=== PATIENT | female | born 1950 | race Caucasian/White ===

== ENCOUNTER 2017-05-14 14:30 | Outpatient (CLI) | payer BC | END 2017-05-14 14:31 | disposition home or self-care (01) | LOC: BICRAD 14:30 | PROVIDERS: ATTEND Family Medicine | DX: R42 Dizziness and giddiness (principal); R00.2 Palpitations; R91.8 Other nonspecific abnormal finding of lung field | CPT/HCPCS: 71046 ==

== ENCOUNTER 2017-05-21 08:02 | Outpatient (CLI) | payer MEDICARE, BC ==
[2017-05-21] MEDS ORDERED: Iopamidol 370 76% 100 ML VIAL ONE (13:48)
== END 2017-05-21 08:03 | disposition home or self-care (01) ==
LOC: BICCT 08:02
PROVIDERS: ATTEND Family Medicine
DX: R93.8 Abnormal findings on diagnostic imaging of other specified body structures (principal); R59.0 Localized enlarged lymph nodes
CPT/HCPCS: 71260

== ENCOUNTER 2017-06-11 08:02 | Day surgery (SDC) | payer BC, MEDICARE ==
[2017-06-10 16:53] VITALS: BMI 17.5
[2017-06-11] MEDS ORDERED: Lidocaine 2% w/Epinephrine 1:200K 20 ML VIAL ONE (08:38)
[2017-06-11] MEDS ORDERED: Lidocaine 1% w/Epinephrine 1:200K 30 ML VIAL ONE ×2 (08:38→08:39)
[2017-06-11] MEDS ORDERED: Midazolam HCl 2 mg/ml Syrup 5 ml UD Cup ONE (09:00)
[2017-06-11] MEDS ORDERED: Levofloxacin 500 mg/D5W 100 ml Premix Bag ONE (09:00)
[2017-06-11] MEDS ORDERED: Midazolam HCl 2 mg/2 ml Vial ONE (09:01)
[2017-06-11 09:06] LABS: #Basophils 0.1 thou/uL (0.0-0.2); #Eosinphils 0.1 thou/uL (0.0-0.7); #Lymphocytes 1.7 thou/uL (1.20-3.40); #Monocytes 0.6 thou/uL (0.11-0.59); #Neutrophils 5.3 thou/uL (1.40-6.50); %Eosinophils 1.7 % (0.0-10.0); %Lymphocytes 21.2 % (21.0-51.0); %Monocytes 7.3 % (0.0-10.0); %Neutrophils 68.8 % (42.0-75.0); Hemoglobin 12.3 g/dL (12.0-16.0); Mean Corpuscular HGB CONC 31.6 g/dL (32.0-36.0); Mean Corpuscular Hemoglobin 29.2 pg (27.0-31.0); Mean Corpuscular Volume 92.4 fl (81.0-99.0); Mean Platelet Volume 8.3 fL (7.4-10.4); Platelet Count 316 thou/uL (130-400); RBC Distribution Width 13.3 % (11.5-14.5); Red Blood Cell (RBC) Count 4.21 mill/uL (4.20-5.40); White Blood Cell (WBC) Count 7.8 thou/uL (4.8-10.8)
[2017-06-11] MEDS ORDERED: Fentanyl 250 MCG/5 ML VIAL ONE (09:14)
[2017-06-11 09:24] LABS: Anion Gap 12 mmol/L (10-20); BUN (Urea Nitrogen) 13 mg/dL (9.8-20.1); Calc. Creatinine Clearance 63 mL/min (70-130); Calcium 9.6 mg/dL (7.8-10.44); Carbon Dioxide 26 mmol/L (23-31); Chloride 103 mmol/L (98-107); Estimated GFR-MDRD 76; Glucose 98 mg/dL (80-115); Potassium 3.8 mmol/L (3.5-5.1); Sodium 137 mmol/L (136-145)
[2017-06-11] MEDS ORDERED: PROPOFOL 200 MG/20 ML VIAL ONE (15:32)
[2017-06-11] MEDS ORDERED: Ondansetron HCl/PF 4 MG/2 ML Vial ONE (15:32)
[2017-06-11] MEDS ORDERED: Lidocaine 1% PF 5 ML VIAL ONE (15:32)
[2017-06-11] MEDS ORDERED: PHENYLEPHRINE-NS 100 MCG/ML 10 ML SYRINGE ONE (15:32)
[2017-06-11] MEDS ORDERED: Glycopyrrolate 0.2 MG/ML 5 ML SYRINGE ONE (15:32)
--- NOTE | 2017-06-15 13:49 | OP ---
DATE OF PROCEDURE: 06/11/2017 PREOPERATIVE DIAGNOSIS: Metastatic lung cancer. PROCEDURE: Right cervical scalene node biopsy. SURGEON: Solo Hebert M.D. ANESTHESIA: General. ESTIMATED BLOOD LOSS: Minimal. PROCEDURE IN DETAIL: After prepping and draping, anesthesia had been obtained, incision was made ove r the right scalene area. Incision was carried down through the platysma, exposing the hard scalene node. A section of this was excisionally biopsied and hemostasis was obtained. A 1% lidocaine with epinephrine was used to infiltrate the skin and subcutaneous tissues and the wound was then closed in layers. Frozen section returned non-small cell carcinoma. The patient tolerated the procedure well .
== END 2017-06-11 12:20 | disposition home or self-care (01) ==
LOC: SDC 08:02
PROVIDERS: ATTEND Thoracic Surgery (Cardiothoracic Vascular Surgery)
PROC: 07B10ZX Excision of Right Neck Lymphatic, Open Approach, Diagnostic (ICD-10-PCS; principal; 2017-06-11)
DX: C77.0 Secondary and unspecified malignant neoplasm of lymph nodes of head, face and neck (principal); C34.11 Malignant neoplasm of upper lobe, right bronchus or lung; F17.210 Nicotine dependence, cigarettes, uncomplicated; Z88.0 Allergy status to penicillin; Z88.5 Allergy status to narcotic agent
CPT/HCPCS: 80048; 85025; 88307; 88313; 88331; 88334; 88341; 88342; 93005; 93010; J1956; J2001; J2250; J2405; J2704; J3010

== ENCOUNTER 2017-06-16 17:34 | Emergency (ER) | payer BC, MEDICARE ==
[2017-06-16 18:03] LABS: #Basophils 0.1 thou/uL (0.0-0.2); #Eosinphils 0.2 thou/uL (0.0-0.7); #Lymphocytes 2.7 thou/uL (1.20-3.40); #Monocytes 0.8 thou/uL (0.11-0.59); #Neutrophils 8.1 thou/uL (1.40-6.50); %Basophils 0.7 % (0.0-1.0); %Eosinophils 1.7 % (0.0-10.0); %Lymphocytes 22.7 % (21.0-51.0); %Monocytes 6.9 % (0.0-10.0); %Neutrophils 68.1 % (42.0-75.0); Hemoglobin 13.7 g/dL (12.0-16.0); Mean Corpuscular HGB CONC 31.9 g/dL (32.0-36.0); Mean Corpuscular Hemoglobin 28.7 pg (27.0-31.0); Mean Corpuscular Volume 90.1 fl (81.0-99.0); Mean Platelet Volume 8.1 fL (7.4-10.4); Platelet Count 410 thou/uL (130-400); RBC Distribution Width 13.5 % (11.5-14.5); Red Blood Cell (RBC) Count 4.78 mill/uL (4.20-5.40); White Blood Cell (WBC) Count 11.9 thou/uL (4.8-10.8)
[2017-06-16 18:36] LABS: CKMB 0.7 ng/mL (0-6.6); Troponin I Less than 0.010 ng/mL (< 0.028)
--- NOTE | 2017-06-16 19:10 | RAD ---
FRONTAL VIEW CHEST: 06/16/17 No prior comparison. INDICATION: Chest pain. FINDINGS: There is a patchy right perihilar opacity. The lungs are hyperinflated. No effusion or pneumothorax. Cardiac silhouette is normal in size. IMPRESSION: Patchy right perihilar opacity could relate to perihilar pneumonia versus asymmetric edema. Recommend continued imaging followup to confirm resolution, as an underlying obstructive hilar lesion is not e xcluded. POS: [facility]
[2017-06-16] MEDS ORDERED: Lorazepam 1 MG TAB ONE (19:30)
[2017-06-16 20:55] LABS: Anion Gap 17 mmol/L (10-20); BUN (Urea Nitrogen) 27 mg/dL (9.8-20.1); Calc. Creatinine Clearance 0 mL/min (70-130); Calcium 10.6 mg/dL (7.8-10.44); Carbon Dioxide 18 mmol/L (23-31); Chloride 105 mmol/L (98-107); Estimated GFR-MDRD 76; Glucose 124 mg/dL (80-115); Potassium 4.6 mmol/L (3.5-5.1); Sodium 135 mmol/L (136-145)
[2017-06-16] MEDS ORDERED: Diphenoxylate HCl/Atropine Tablet ONE (21:20)
== END 2017-06-16 22:16 | disposition home or self-care (01) ==
LOC: ERS 17:34
DX: C34.91 Malignant neoplasm of unspecified part of right bronchus or lung (principal); E86.0 Dehydration; F17.210 Nicotine dependence, cigarettes, uncomplicated; Z79.891 Long term (current) use of opiate analgesic
CPT/HCPCS: 71045; 80048; 82553; 83735; 84484; 85025; 93005; 96360; 96361

== ENCOUNTER 2017-06-24 09:05 | Outpatient (CLI) | payer BC, MEDICARE ==
[~2017-06-24 09:05] MED LIST: Gadobenate Dimeglumine 529 MG/1 ML (20ML VIAL) ONE
--- NOTE | 2017-06-24 15:16 | MRI ---
BRAIN MRI WITH AND WITHOUT CONTRAST: Date: 06/24/17 HISTORY: Headache. Lung cancer patient. Staging exam. COMPARISON: None. TECHNIQUE: Brain MRI is performed with and without intravenous Gadolinium administration. Multisequential, multi planar imaging is performed. FINDINGS: No hemorrhage on the axial gradient echo sequence. Calvarium has a normal T1 marrow signal intensity. Midline brain parenchymal structures are unremarkable. No parenchymal mass, mass effect, or midline shift. Brain volume is age-appropriate. Cortical gregory-white matter differentiation is preserved. Vent ricles and sulci are patent and symmetric. Central arterial flow-voids are maintained. Absent restric lacho diffusion. Incidental choroidal fissure cyst in the right temporal region is noted. Adequate aera tion of the sinuses and mastoid air cells. No significant T2 or FLAIR white matter hyperintensities. No pathologic enhancement of the brain parenchyma. IMPRESSION: No pathologic enhancement of the brain parenchyma. No MR evidence of brain parenchymal metastasis. POS: [facility]
== END 2017-06-24 09:06 | disposition home or self-care (01) ==
LOC: SCSMRI 09:05
PROVIDERS: ATTEND Internal Medicine Medical Oncology
DX: C34.31 Malignant neoplasm of lower lobe, right bronchus or lung (principal); R51 Headache
CPT/HCPCS: 70553; A9579

== ENCOUNTER 2017-06-24 10:29 | Outpatient (CLI) | payer MEDICARE, BC ==
--- NOTE | 2017-06-24 14:57 | PET ---
NUCLEAR MEDICINE FDG PET CT: (Positron Emission Tomography) DATE: 06/24/17 HISTORY: 67-year-old female with Stage IV metastatic adenocarcinoma identified from neck biopsy. PET scan orde red to evaluate extent of metastatic disease and to identify primary neoplasm. COMPARISON: None. TECHNIQUE: IV injection F-18 Fluorodeoxyglucose (FDG) dose: 9.1 mCi PET and attenuation-correction CT performed from skull base to proximal thighs. FINDINGS: SUV (standard uptake value) numbers given are maximum SUV's: These are QCLR values. At the T2-3 level, there is an enlarged right paraesophageal upper mediastinal lymph node, SUV 11.4. Right medial supraclavicular lymph node abutting the lateral aspect of right lobe of the thyroid glan d with SUV of 9.8. More inferiorly in the mediastinum, a midline pretracheal, precarinal lymph node SUV 9.2. This is contiguous with left precarinal lymph node with SUV of 9.5. These are contiguous with subcari nal lymph nodes with SUV of 9.1. Right hilar activity with SUV of 7.3. This is contiguous with a small right parahilar lower lobe soft tissue density lesion with SUV of 5.6. Left paraesophageal inferior mediastinal lymph node abutting the anterior aspect of the descending th oracic aorta and abutting the posterior aspect of the left atrium of the heart, measuring approximate ly 3.5 x 2 cm, with SUV of 8.7. A 4 x 4 cm mass at the region of the gastroesophageal junction with peripheral rim of FDG avidity. OCONNELL V 9.0. Low attenuation lesion in right lobe of the liver without FDG avidity, probably a cyst. No abnormal F DG avidity within the abdomen or pelvis. IMPRESSION: 1. Multiple foci of FDG-avid tumor activity at midline and off midline, including multiple metastati c lymph nodes. 2. The best candidate for the primary tumor may be a 4 x 4 cm mass at the esophagogastric junction. 3. The second best candidate for the primary tumor would be right infrahilar lower lobe pulmonary. 4. Several malignant mediastinal lymph nodes, right hilar lymph node, and right supraclavicular lymp h node. The mediastinal lymph nodes include paraesophageal lymph nodes. DESTINEE Sexton POS: [facility]
== END 2017-06-24 10:30 | disposition home or self-care (01) ==
LOC: PET 10:29
PROVIDERS: ATTEND Internal Medicine Medical Oncology
DX: C34.90 Malignant neoplasm of unspecified part of unspecified bronchus or lung (principal); C77.8 Secondary and unspecified malignant neoplasm of lymph nodes of multiple regions
CPT/HCPCS: 78815; A9552

== ENCOUNTER 2017-07-23 09:43 | Outpatient (CLI) | payer BC, MEDICARE ==
--- NOTE | 2017-07-23 14:37 | NM ---
WHOLE BODY BONE SCAN: HISTORY: Malignant neoplasm of lower lobes, right bronchus. RADIOPHARMACEUTICAL: 33 mCi Technetium 99m-MDP injected intravenously. FINDINGS: There are foci of mild increased uptake in the cervical spine consistent with degenerative changes. No other abnormal areas of tracer localization are seen in the skeleton to suggest metastatic disease . Tracer excretion through the kidneys is within normal limits. IMPRESSION: No scintigraphic evidence of osseous metastatic disease. POS: [facility]
== END 2017-07-23 09:44 | disposition home or self-care (01) ==
LOC: NM 09:43
PROVIDERS: ATTEND Internal Medicine Medical Oncology
DX: C34.90 Malignant neoplasm of unspecified part of unspecified bronchus or lung (principal)
CPT/HCPCS: 78306; A9503

== ENCOUNTER 2017-08-17 12:50 | Observation (INO) | payer BC, MEDICARE ==
[~2017-08-17 12:50] MED LIST changes: -Gadobenate Dimeglumine 529 MG/1 ML (20ML VIAL) ONE; +ISOVUE-370 76%-LOCM 1 ML ONE
[2017-08-17 13:41] LABS: #Basophils 0.1 thou/uL (0.0-0.2); #Eosinphils 0.3 thou/uL (0.0-0.7); #Lymphocytes 2.1 thou/uL (1.20-3.40); #Monocytes 0.8 thou/uL (0.11-0.59); #Neutrophils 6.9 thou/uL (1.40-6.50); %Basophils 1.2 % (0.0-1.0); %Eosinophils 2.8 % (0.0-10.0); %Lymphocytes 20.9 % (21.0-51.0); %Monocytes 7.4 % (0.0-10.0); %Neutrophils 67.8 % (42.0-75.0); Hemoglobin 11.2 g/dL (12.0-16.0); Mean Corpuscular HGB CONC 31.4 g/dL (32.0-36.0); Mean Corpuscular Hemoglobin 27.7 pg (27.0-31.0); Mean Corpuscular Volume 88.1 fl (81.0-99.0); Mean Platelet Volume 10.1 fL (7.4-10.4); Platelet Count 242 thou/uL (130-400); RBC Distribution Width 13.5 % (11.5-14.5); Red Blood Cell (RBC) Count 4.03 mill/uL (4.20-5.40); White Blood Cell (WBC) Count 10.1 thou/uL (4.8-10.8)
[2017-08-17 13:44] LABS: INR-International Normal Ratio 1.3; Prothrombin Time 16.4 SEC (12.0-14.7)
[2017-08-17 13:45] LABS: PTT 39.5 SEC (22.9-36.1)
[2017-08-17 13:58] LABS: ALT (SGPT) 15 U/L (8-55); AST (SGOT) 17 U/L (5-34); Albumin 3.8 g/dL (3.4-4.8); Alkaline Phosphatase 98 U/L (40-150); Anion Gap 16 mmol/L (10-20); BUN (Urea Nitrogen) 11 mg/dL (9.8-20.1); Bilirubin, Total 0.4 mg/dL (0.2-1.2); Calc. Creatinine Clearance 0 mL/min (70-130); Calcium 9.6 mg/dL (7.8-10.44); Carbon Dioxide 24 mmol/L (23-31); Chloride 101 mmol/L (98-107); Estimated GFR-MDRD 90; Glucose 94 mg/dL (80-115); Potassium 4.3 mmol/L (3.5-5.1); Protein, Total 7.8 g/dL (6.0-8.3); Sodium 137 mmol/L (136-145)
--- NOTE | 2017-08-17 14:15 | CT ---
CT CHEST WITH CONTRAST: Date: 08/17/17 HISTORY: Dyspnea. COMPARISON: None. FINDINGS: There is a spiculated mass superior segment right lower lobe and anterior segment right lower lobe, w ith retraction of the major fissure, as well as extensive thickening. The mass measures approximately 5.0 x 3.0 x 5.1 cm, although there is extension along the hilum. There are abnormal centrally necrot ic lymph nodes throughout the mediastinal. Right paratracheal lymph node measures up to 2.3 cm in siz e. Extensive subcarinal adenopathy, as well as paraesophageal adenopathy is present. Large centrally necrotic right paraesophageal lymph node measures up to 4.0 cm in transverse dimension. There is abnormal mediastinal invasion, as well as some involvement of the left inferior pulmonary ve in. Hepatic cyst is present. No acute osseous abnormality. No suspicious lytic or blastic lesions. No displaced rib fracture. IMPRESSION: 1. Large spiculated malignant process in the right lower lobe with extensive mediastinal adenopathy. 2. Extensive central lobular and paraseptal emphysema. 3. Likely malignant small right-sided layering pleural effusion. POS: [facility]
--- NOTE | 2017-08-17 15:08 | CT ---
NECK CT WITH CONTRAST: Date: 08-17-17 History: Dyspnea. Known metastatic disease. Technique: Serial axial CT imaging at 5 mm intervals from skull base through lung apices with IV cont rast. Coronal and sagittal reformatted imaging obtained. FINDINGS: The retroantral and parapharyngeal fat appears clear bilaterally. Imaged paranasal sinuses/mastoid air cells are well aerated. Bilateral lung apices demonstrate emphysematous change. There is a soft tissue mass in the right trac heoesophageal groove abutting the posterior inferior aspect of the right lobe of the thyroid gland me asuring 3.1 cm in AP dimension. There is a lobulated soft tissue mass in the supraclavicular region just posterior and superior to th e head of the clavicle on the right. This mass measures 3.8 x 3.6 cm and abuts the internal jugular v ein on the right with marked internal jugular vein narrowing. Parotid and submandibular glands appear grossly unremarkable. Tonsillar pillars, hyoid bone, epiglott is and pre-epiglottic fat, thyroid cartilage and cricoid cartilage appear unremarkable. Nonspecific l ow density nodules are identified within the thyroid gland bilaterally, including a nodular on the ri ght measuring up to 1.3 cm. There is degenerative change at the atlantoaxial interspace. There is prominent multilevel facet and uncal vertebral osteophyte formation throughout the cervical spine. There is also anterolisthesis at C4-5 measuring approximately 5 mm. There is disc space narrowing, degenerative endplate change, and a nterior osteophyte formation at C4-5, C5-6, and C6-7. No worrisome lytic or blastic bone lesion. IMPRESSION: There are mass lesions identified in the medial right subclavicular region and the right tracheoesoph ageal groove, evidence of metastatic disease. Findings were better assessed on recent PET CT performe d 06-24-17. POS: [facility]
[2017-08-17] MEDS ORDERED: Zolpidem Tartrate 5 MG TAB PO PRN (17:25)
[2017-08-17] MEDS ORDERED: Ondansetron ODT 4 MG TAB PO PRN (17:25)
[2017-08-17] MEDS ORDERED: Acetaminophen 325 MG TAB PO PRN (17:25)
[2017-08-17 18:04] VITALS: BMI 16.9
[2017-08-17] MEDS ORDERED: ALPRAZolam 0.25 MG TAB PO PRN (18:45)
[2017-08-17] MEDS: HYDROcodone/Acetaminophen 10/325 mg Tablet PO PRN (19:28)
[2017-08-17] MEDS: Mirtazapine 15 MG TAB PO SCH (20:14)
[2017-08-17] MEDS ORDERED: Mirtazapine 15 MG TAB PO SCH (21:00)
[2017-08-18] MEDS: HYDROcodone/Acetaminophen 10/325 mg Tablet PO PRN ×2 (05:06→20:23)
--- NOTE | 2017-08-18 07:41 | HP ---
CHIEF COMPLAINT: Hemoptysis. HISTORY OF PRESENT ILLNESS: The patient is a 67-year-old female who has a history of fairly recently diagnosed lung cancer. The patient is on Keytruda, but declined more aggressive chemotherapy. She is followed by Dr. Gaston. The patient presented today with some hemoptysis. She reports that for the last 3 weeks or so she has been having some difficulties with feeling like she has chest congest ion in the mornings. She subsequently coughs and generates some thin scant hemoptysis. That continu es throughout the day somewhat. She is also having some difficulty with swallowing with some bites o f food hanging in her throat and then ultimately coming back up. She does have some persistent cough and has had no fevers or chills. She does not have any significant sputum along with the mild hemop tysis. PAST MEDICAL HISTORY: Only notable for the lung cancer. She had a PET scan performed in June which revealed multiple foci including multiple metastatic lymph nodes. She had a 4 x 4 cm mass in the es ophagogastric junction and other significant one in the right infrahilar lower lobe, several malignan t mediastinal lymph nodes in the right hilar lymph node, right supraclavicular node, and mediastinal lymph nodes including the paraesophageal lymph node. Other than that, the patient has had no signifi cant chronic conditions. PAST SURGICAL HISTORY: Right supraclavicular lymph node biopsy. FAMILY HISTORY: Father of an MVA at the age of 47. Her mother at 93. She has 1 brother w ho of cancer who was a heavy drinker and smoker. She had another brother who of hepatitis. Her sister is alive and well. SOCIAL HISTORY: The patient has a history of smoking up to 2 packs per day. She has been smoking si nce she was 16 years old. She has no alcohol consumption but states she did drink when she was young er. She denies any history of drugs. She is a and her of cancer. ALLERGIES: PENICILLIN. CURRENT MEDICATIONS: Include Keytruda, Anoro Ellipta 1 puff q. day, Hemp Oil 1 drop q.24 hours, Norc o 10/325 one p.o. q.4 hours p.r.n., and Remeron 7.5 mg at bedtime. ALLERGIES: PENICILLIN. PHYSICAL EXAMINATION: VITAL SIGNS: Temperature 98.5, pulse 101, respirations 18, O2 sat 96% on room air, BP 153/85. GENERAL APPEARANCE: Age appropriate female. She is in no acute distress. She is awake, alert, orie nted, pleasant and cooperative. HEENT: PERRL. No OP lesions. NECK: Supple and symmetric. She does have some lymphadenopathy, especially in the right supraclavic ular area is palpable. CARDIOVASCULAR: Regular rate and rhythm with no murmurs. LUNGS: Clear to auscultation bilaterally. ABDOMEN: Soft, nontender, nondistended. Positive bowel sounds. No masses and no organomegaly. EXTREMITIES: Warm and dry. LABORATORY DATA: White count 10.1, hemoglobin 11.2, platelets 242. PT 16.3, INR 1.3, PTT 39.5. Maryann mistries are normal. A CT of the chest from today reveals a large spiculated malignant process in th e right lower lobe with extensive mediastinal lymphadenopathy, also extensive centrilobular and polo eptal emphysema and malignant small right-sided layering pleural effusion. A CT of the soft tissues of the neck, lesions identified at the medial right subclavicular region and the right tracheoesophag eal groove that are apparent metastatic lesions. IMPRESSION AND PLAN: 1. Hemoptysis with dysphagia. The patient has a paraesophageal tumor which is likely causing some i mpingement on the esophagus and possibly the trachea as well. I discussed with Dr. Gaston. We aramis l obtain a barium swallow to evaluate the esophagus to see if there is truly an impact on this area. In the meantime, we will give her some Solu-Medrol for symptom control and modify her diet. 2. Metastatic lung cancer stage IV. The patient is on Keytruda, but no other aggressive chemotherap y. 3. Insomnia. We will resume the patient's Remeron and give her p.r.n. Ambien. DISPOSITION: The patient is very clear that she would like to be a DNR and DNI. She names her Maggie hurd as her surrogate decision maker and her PCP is Jose Jasmine.
--- NOTE | 2017-08-18 09:56 | PDOC.PN ---
- Subjective Encounter Start Date: 08/18/17 Encounter Start Time: 09:55 FEELS OK THIS MORNING. SHE DID NOT SLEEP WELL, BUT THAT IS COMMON FOR HER. - Objective Resuscitation Status: Resuscitation Status DNR:Do Not Resuscitate Vital Signs & Weight: Vital Signs (12 hours) Temp Pulse Resp BP BP Pulse Ox 08/18/17 08:00 98.2 F 65 20 08/18/17 07:31 98.2 F 65 20 112/70 92 L 08/18/17 07:05 98.2 F 65 20 112/70 92 L 08/18/17 06:38 96 08/18/17 06:37 67 14 96 08/18/17 03:58 98.8 F 74 16 107/71 96 08/17/17 23:55 98.0 F 71 16 116/69 94 L Weight Weight 111 lb 6.4 oz I&O: 08/17/17 08/18/17 08/19/17 06:59 06:59 06:59 Intake Total 950 Balance 950 Result Diagrams: 08/17/17 13:29 08/17/17 13:29 Phys Exam - Physical Examination Constitutional: NAD HEENT: PERRLA Respiratory: no wheezing, no rales, no rhonchi SLIGHTLY DIMINISHED BREATH SOUNDS THROUGHOUT Cardiovascular: RRR, no significant murmur Gastrointestinal: soft, non-tender, no distention, positive bowel sounds Musculoskeletal: no edema Psychiatric: normal affect Dx/Plan (1) Hemoptysis Code(s): R04.2 - HEMOPTYSIS Status: Acute Plan: HAS ESOPHAGOTRACHEAL TUMOR ON CT OF NECK. D/W DR. PINTO. INITIALLY ORDERED STEROIDS, BUT HE SUBSEQUENTLY HELD THEM. (2) Lung cancer Code(s): C34.90 - MALIGNANT NEOPLASM OF UNSP PART OF UNSP BRONCHUS OR LUNG Status: Acute Plan: PATIENT IS ON KEYTRUDA, BUT DOES NOT WANT STANDARD CHEMO. HAS SEVERAL LESIONS AND MULTIPLE NODES INVOLVED. DR. PINTO CONSULTED. (3) Dysphagia Code(s): R13.10 - DYSPHAGIA, UNSPECIFIED Status: Acute Plan: DISCUSSED WITH ST. WILL GET A MODIFIED BA SWALLOW AND BA SWALLOW. TWO POTENTIAL LESIONS. ONE AT THE ESOPHAGOTRACHEAL JUNCTION AND ANOTHER AT THE ESOPHAGOGASTRIC JUNCTION. MODIFIED DIET. (4) Insomnia Code(s): G47.00 - INSOMNIA, UNSPECIFIED Status: Acute Plan: CHRONIC. HAS HER REMERON ORDERED WELL ARMAANIEN. - Plan * ABOVE.
--- NOTE | 2017-08-18 11:00 | RAD ---
MODIFIED BARIUM SWALLOW PERFORMED WITH SPEECH THERAPIST: HISTORY: Feeding difficulty, dysphagia. Lung cancer with paraesophageal mets. FINDINGS: The patient was given thin barium and barium coated crackers for the study. She showed some spillage with the barium coated crackers into the vallecula region. There is no aspiration or penetration. IMPRESSION: Minimal spillage into the vallecular region. No signs of aspiration or penetration. POS: [facility]
--- NOTE | 2017-08-18 11:44 | RAD ---
BARIUM SWALLOW: History: Dysphasia. History of a right lung mass and pathologic adenopathy with necrotic adenopathy i n the paraesophageal location. FINDINGS: The patient did ingest the barium and crystals without difficulty. I do not see any definite mucosal abnormalities. At approximately mid-esophagus level there is what appears to be a more circumferentia l narrowing of a short segment of the midesophagus. Distal to this level, the esophagus is displaced to the left and this area appears to be more related to an extrinsic impression. Because of the narro wing at the midesophagus, the more distal esophagus never fully filled. I do not see any definite muc osal findings. IMPRESSION: Fairly short segment of what appears to be circumferential narrowing of the midesophagus. This is ove r approximately two vertebral body levels. There is pathologic appearing adenopathy in this region. I cannot exclude that there has been esophageal wall invasion in this specific area. Distal to this ar ea the esophagus is displaced laterally, but this appears to be more definitively from extrinsic impr ession. POS: [facility]
--- NOTE | 2017-08-18 18:01 | CON ---
DATE OF CONSULTATION: 08/18/2017 REASON FOR CONSULTATION: Lung cancer. HISTORY OF PRESENT ILLNESS: Ms. Baumann is a 67-year-old female who was recently diagnosed with stage IV adenocarcinoma of the right lower lobe. She had mediastinal lymphadenopathy and a mass at the EG junction. She saw Dr. Gaston in June and was offered chemo with immunotherapy. She declined chemotherapy, but they began Keytruda. Her first dose was 07/19/2017. She gets Keytruda every 3 weeks. She has had progressive dysphagia with increasing shortness of breath. She presented to the emergency room yesterday with hemoptysis and dyspnea. She had a chest and a soft tissue neck CT performed, which again showed the right lower lobe mass, the peritracheal lymph node, the mediastinal lymph nodes and subcarinal adenopathy, and the mass at her EG junction. A barium swallow performed showed circumferential narrowing, but no definitive obstruction. The patient did not receive IV steroids as she declined as they would counteract her Keytruda therapy. She has been getting neb treatments while in the hospital. She does have a chronic cough and mild dysphagia. She is treated by Dr. Aaron for her emphysema. PAST MEDICAL HISTORY: 1. Stage IV adenocarcinoma of the lung. 2. Chronic tobacco use. PAST SURGICAL HISTORY: Neck biopsy. ALLERGIES: PENICILLIN, CODEINE. HOME MEDICATIONS: 1. Anoro Ellipta inhaler. 2. Megace daily. 3. Hooper 10/325 p.r.n. 4. Tramadol 50 mg daily. 5. Ventolin p.r.n. FAMILY HISTORY: Brother had lung cancer. SOCIAL HISTORY: , lives alone. Current everyday smoker, [id number] history. No alcohol or illicit drug use. REVIEW OF SYSTEMS: Constitutional: No fever, chills, night sweats. Eyes: No blurred or double vision. ENT: No pain, hoarseness, sore throat. Positive for dysphagia. Cardiovascular: No chest pain, palpitations or syncope. Respiratory: Positive shortness breath, dyspnea on exertion, and hemoptysis. Gastrointestinal: No nausea, vomiting, diarrhea, constipation or abdominal pain. Genitourinary: No dysuria or hematuria. Musculoskeletal: No joint or back pain. Skin: No rash or pruritus. Hematological: Positive for hemoptysis. No bruising or clotting. Neurologic: No weakness, headache, numbness, tingling or seizure activity. Psychiatric: Positive for anxiety and depression. PHYSICAL EXAMINATION: VITAL SIGNS: Temperature is 97.6, pulse is 90, respiratory rate 20, BP is 135/ 65. She is 98% on room air. GENERAL: A chronically ill-appearing female, in no acute distress. HEENT: Normocephalic, atraumatic. Pupils equal and reactive to light. NECK: Supple. CARDIOVASCULAR: Regular rate and rhythm. LUNGS: Diminished throughout. ABDOMEN: Soft, nontender, bowel sounds are positive. EXTREMITIES: No clubbing, cyanosis or edema. SKIN: No rash. HEMATOLOGIC: No petechia or purpura. NEUROLOGICAL: Nonfocal. PSYCHIATRIC: The patient is alert and oriented and appropriate. PERTINENT LABORATORY AND X-RAYS: Current WBCs are 10.1, hemoglobin 11.2, hematocrit 35.5, platelet count is 242,000, 68% neutrophils, 21% lymphocytes. PT 16.4, INR is 1.3, PTT 39.5. Sodium is 137, potassium 4.3, chloride 101, CO2 is 24, BUN is 11, creatinine 0.66, calcium is 9.6, total bilirubin is 0.4, AST is 17, ALT is 15, alkaline phosphatase is 98, serum total protein 7.8, albumin 3.8, globulin 4. Radiology per HPI. IMPRESSION: 1. Stage IV adenocarcinoma of the lung. 2. Dysphagia secondary to lymphadenopathy. DISCUSSION: The patient has received 2 doses of immunotherapy with Keytruda. She is due for her next cycle on 08/31/2017. I recommend no steroids as it will counteract her treatment. We would continue the nebulizers and inhalers p.r.n. I will add scheduled Xanax to assist with anxiety and shortness of breath. She has declined a feeding tube and is a DNR. Plan is to continue Keytruda. She understands that she needs at least 2 more cycles before improvement in symptoms is expected. Thank you for the consult. MINDY
[2017-08-18] MEDS: Mirtazapine 15 MG TAB PO SCH (20:22)
[2017-08-18] MEDS: ALPRAZolam 0.25 MG TAB PO SCH (20:23)
--- NOTE | 2017-08-18 22:20 | PDOC.EVN ---
Event Note - Event Note Event Note: Long discussion with the patient this evening. She has been clear that she does not want chemotherapy. She doesn't really want to consider XRT either. She is concerned that she feels like she can't breath eventhough her sats are good with a normal respiratory rate. I explained that there does not seem to be any obstruction of the upper airway based on my review of the imaging. She is concerned that she may be going home and not having anything done or improving her situation. I explained that we could get the Chore Worker to see her and consider a bronch, but if there is a lesion, our options are still chemo or XRT that she does not want. She wants to pursue the Keytruda, but not steroids as they may interfere with the Keytruda. Ultimately, we discussed her options for palliative care or hospice. We discussed the progression of the disease and ways to improve her symptomatic as it does advance. She will be considering her options and told the oncology team that she would likely make a decision in the morning. They recommended keeping her over night. Now she says she may not be ready to commit to a decision by then. Reassured her that it is ok to take some time to consider that options. Time spent in Advanced Care Planning 35 min.
[2017-08-19 07:53] VITALS: BP 108/62; TEMP 98.9
[2017-08-19] MEDS: ALPRAZolam 0.25 MG TAB PO SCH (08:26)
--- NOTE | 2017-08-19 11:57 | DIS ---
DATE OF ADMISSION: 08/17/2017 DATE OF DISCHARGE: 08/19/2017 DISCHARGE DIAGNOSES: 1. Metastatic lung cancer which is stage IV adenocarcinoma with the primary in the right lower lobe. 2. The patient had known significant mediastinal lymphadenopathy including a large lesion in the right subclavicular area. The patient agreed to treatment with Keytruda, but did not want traditional chemotherapy. She has also not significantly been interested in any radiation therapy either. The patient ultimately presented to the emergency department with hemoptysis and dysphagia. The hemoptysis was minor and the dysphagia was intermittent and had been going on for some time. She was subsequently placed in observation for further evaluation. She had a CT scan of the chest and soft tissue of the neck. There was some concern about the right subclavian mass, possibly impeding however, there was no evidence of significant compromise of her airway. The patient did report that she had episodes of feeling short of breath , although she appeared to be generally comfortable with breathing and her oxygen saturations remained fairly stable. On upper GI and barium swallow and a modified barium swallow were obtained, which did reveal an apple core type lesion of the mid esophagus. On talking to the patient, there was still no interest in pursuing chemotherapy or radiation therapy. Oncology was consulted and Harleen Berrios saw the patient as well, had long discussions with her also. Ultimately without the ability to pursue radiation or chemotherapy there is little to be done to address the lesion encroaching on the esophagus causing the dysphagia and there was no obvious large lesions impacting the patient's airway on her imaging. I discussed the possibility of bronchoscopy; however, if there were lesions present, that would still require more aggressive treatment with the radiation or chemotherapy. The patient also is not a good candidate for steroids because of the treatment with the Keytruda. Ultimately, the patient's symptoms essentially remained unchanged. PHYSICAL EXAMINATION: VITAL SIGNS: On the day of discharge, temperature was 98.9, pulse 62, respirations 16-20, O2 sat 94% on room air, BP 108/62. GENERAL: Age appropriate female who appears chronically ill and somewhat thin. HEART: Regular rate and rhythm without murmurs. LUNGS: Her lungs have diminished breath sounds without significant rales bilaterally. ABDOMEN: Soft. EXTREMITIES: Warm and dry without edema. DISPOSITION: The patient is discharged to home. She is to have her usual followup with the Oncology Clinic for the Keytruda. Discussed at length the need to stick with soft food diet to avoid occlusion of the esophagus. Discussed supplements including Ensure or other type protein supplements with additional vitamins. Harleen Berrios talked to the patient again and explained that Keytruda will likely have increasing effectiveness with her next couple rounds of dosing. Ultimately that will be the treatment plan for the patient. She declined offers for oxygen therapy as well. Otherwise, her activity level is as tolerated and the patient should return to the emergency department should she have any problems prior to her followup. DISCHARGE MEDICATIONS: Discharge medications will include her usual home medications including the Remeron 7.5 mg p.o. at bedtime and the hemp oil. She will also have a prescription for Xanax 0.25 mg q.4h. per Harleen Berrios to help her manage some of her symptoms. MTDD
== END 2017-08-19 10:59 | disposition home or self-care (01) ==
LOC: ERS 12:50 → ONC 15:37
PROVIDERS: ADMIT Internal Medicine; ATTEND Internal Medicine
DX: R04.2 Hemoptysis (principal); R59.0 Localized enlarged lymph nodes; R13.10 Dysphagia, unspecified; C34.31 Malignant neoplasm of lower lobe, right bronchus or lung; C79.9 Secondary malignant neoplasm of unspecified site; G47.00 Insomnia, unspecified; Z87.891 Personal history of nicotine dependence; Z79.899 Other long term (current) drug therapy; Z88.0 Allergy status to penicillin; Z66 Do not resuscitate
CPT/HCPCS: 70491; 71260; 74220; 74230; 80053; 85025; 85610; 85730; 94640; A4216; G0378; G8996-GN-CI; G8996-GN-CM; G8997-GN-CI; J7620

== ENCOUNTER 2017-08-30 19:42 | Inpatient (IN) | payer BC, MEDICARE ==
[2017-08-30] MEDS ORDERED: Lorazepam 2 MG/ML VIAL ONE (19:56)
[2017-08-30] MEDS ORDERED: Water For Injection,Sterile 20 ML ONE (19:56)
[2017-08-30] MEDS ORDERED: methylPREDNISolone Sod Succ/PF 125 MG/2 ML VIAL ONE (19:56)
[2017-08-30] MEDS ORDERED: Albuterol Sulfate 2.5 mg/0.5 ml Neb ONE (19:59)
[2017-08-30 20:02] LABS: Hemoglobin 12.2 g/dL (12.0-16.0); Mean Corpuscular HGB CONC 31.9 g/dL (32.0-36.0); Mean Corpuscular Hemoglobin 27.9 pg (27.0-31.0); Mean Corpuscular Volume 87.5 fL (78.0-98.0); Mean Platelet Volume 8.6 fL (7.4-10.4); Platelet Count 530 thou/uL (130-400); RBC Distribution Width 13.7 % (11.5-14.5); Red Blood Cell (RBC) Count 4.39 mill/uL (4.20-5.40)
[2017-08-30 20:07] LABS: INR-International Normal Ratio 1.4; PTT 37.3 SEC (22.9-36.1); Prothrombin Time 17.3 SEC (12.0-14.7)
[2017-08-30 20:08] LABS: D-Dimer Test 0.64 *mcg/mL (0.27-0.43)
[2017-08-30] MEDS ORDERED: Diltiazem 125 MG/25 ML ONE (20:08)
[2017-08-30 20:19] LABS: Band 2 % (5-11); Lymphocytes 23 % (21-51); MDiff Complete? YES; Monocytes 6 % (0-10); Neutrophil 69 % (42-75); PLT Morphology Comment Appears Increased
[2017-08-30 20:20] LABS: ALT (SGPT) 18 U/L (8-55); AST (SGOT) 26 U/L (5-34); Albumin 3.7 g/dL (3.4-4.8); Alkaline Phosphatase 128 U/L (40-150); Anion Gap 17 mmol/L (10-20); BUN (Urea Nitrogen) 14 mg/dL (9.8-20.1); Bilirubin, Total 0.3 mg/dL (0.2-1.2); Calc. Creatinine Clearance 0 mL/min (70-130); Calcium 9.4 mg/dL (7.8-10.44); Carbon Dioxide 23 mmol/L (23-31); Chloride 101 mmol/L (98-107); Estimated GFR-MDRD 62; Globulin 3.9 g/dL (2.4-3.5); Glucose 235 mg/dL (80-115); Potassium 4.3 mmol/L (3.5-5.1); Protein, Total 7.6 g/dL (6.0-8.3); Sodium 137 mmol/L (136-145)
[2017-08-30 20:24] LABS: CKMB 1.1 ng/mL (0-6.6); Troponin I Less than 0.010 ng/mL (< 0.028)
[2017-08-30] MEDS ORDERED: Fentanyl 100 MCG/2 ML VIAL ONE (21:11)
--- NOTE | 2017-08-30 21:32 | RAD ---
RADIOGRAPH CHEST 1 VIEW: Date: 08/30/2017 Time: 7:15 p.m. HISTORY: A 67-year-old female with malignant neoplasms of the trachea and esophagus and right lung, presents w ith dyspnea, hemoptysis, and hypoxemia. COMPARISON: 06/16/2017 FINDINGS: There is mild hyperinflation, suggestive of mild COPD. The cardiomediastinal silhouette is normal. The right lower lobe stellate small to moderate sized pulmonary lesion, contiguous with the inferior aspect of the right hilum, appears either stable or slightly larger now. No pulmonary edema or conso lidation. The lateral costophrenic angles are not blunted. No pneumothorax. IMPRESSION: 1. Right lower lobe lung cancer. 2. No acute findings. DESTINEE [] POS: MUSA
[2017-08-30] MEDS ORDERED: Ondansetron HCl/PF 4 MG/2 ML Vial IVP PRN (22:35)
[2017-08-30] MEDS ORDERED: Acetaminophen 325 MG TAB PO PRN (22:35)
[2017-08-30] MEDS ORDERED: HYDROcodone/Acetaminophen 10/325 mg Tablet PO PRN (22:37)
[2017-08-30] MEDS ORDERED: ALPRAZolam 0.25 MG TAB PO PRN (22:37)
--- NOTE | 2017-08-30 22:53 | CT ---
CTA THORAX WITH CONTRAST: (Computed Tomographic Angiography, chest (noncoronary) with contrast material, and image post process ing) (PE protocol) DATE: 08/30/2017 TIME: 9:39 p.m. HISTORY: A 67-year-old female with respiratory distress and chest pain with hemoptysis. Tumors, stage IV, on trachea and esophagus, due for therapy tomorrow. COMPARISON: CT chest 08/17/2017. TECHNIQUE: IV injection of iodinated contrast: Isovue. Scan acquisition timing attempted to coincide with iodinated contrast bolus reaching maximal density in pulmonary arteries. 3D MIP reconstructions. FINDINGS: Again demonstrated is the spiculated pulmonary mass involving the anterior aspect of the superior seg ment of the right lower lobe, broadly abutting the posterior aspect of the major fissure, contiguous with tumor mass/lymphadenopathy of the right hilum. The main pulmonary tumor mass has an elongated a nterior process that extends anteriorly and inferiorly down to the ayanna-basilar segment of the righ t lower lobe. This could be chronic postobstructive atelectasis or pneumonitis due to the tumor, or it could be an extension of the tumor itself. Again demonstrated is the extensive, necrotic, heterogeneously rim-enhancing malignant mediastinal ly mphadenopathy, including the pretracheal space; and the subcarinal region, extrinsically compressing the kem and severely narrowing the right and left mainstem bronchi in the anteroposterior dimensio ns. There is no evidence of pulmonary thromboembolism. Additionally, there is a moderately large right u pper mediastinal necrotic malignant lymph node that compresses and displaces the esophagus to the lef t, and mildly displaces the trachea, at the thoracic inlet. No thoracic aortic aneurysm or dissection. Centrilobular emphysema again demonstrated diffusely. No pleural effusion or pneumothorax. Again demonstrated is the cyst in the right lobe of the liver. N o cardiomegaly or pericardial effusion. No major interval change. IMPRESSION: 1. No evidence of pulmonary thromboembolism. 2. Right lower lobe lung cancer. 3. Extensive malignant metastatic mediastinal lymphadenopathy. 4. Centrilobular emphysema. 5. Significant airway narrowing of the left and right mainstem bronchi, due to extrinsic tumor compr ession by the subcarinal mediastinal lymphadenopathy. 6. No major interval change since 08/17/2017. naye[] POS: MUSA
[2017-08-31 00:22] LABS: Lactic Acid 0.7 mmol/L (0.5-2.2)
[2017-08-31 01:24] VITALS: BMI 17.2
[2017-08-31 02:55] LABS: Lactic Acid 0.6 mmol/L (0.5-2.2)
[2017-08-31 03:24] LABS: Anion Gap 12 mmol/L (10-20); BUN (Urea Nitrogen) 10 mg/dL (9.8-20.1); Calc. Creatinine Clearance 83 mL/min (70-130); Calcium 8.1 mg/dL (7.8-10.44); Carbon Dioxide 21 mmol/L (23-31); Chloride 109 mmol/L (98-107); Estimated GFR-MDRD Greater than 90; Glucose 102 mg/dL (80-115); Potassium 4.2 mmol/L (3.5-5.1); Sodium 138 mmol/L (136-145)
[2017-08-31 04:22] LABS: #Basophils 0.1 thou/uL (0.0-0.2); #Eosinphils 0.1 thou/uL (0.0-0.7); #Lymphocytes 1.2 thou/uL (1.20-3.40); #Monocytes 0.5 thou/uL (0.11-0.59); #Neutrophils 6.1 thou/uL (1.40-6.50); %Basophils 0.7 % (0.0-1.0); %Eosinophils 0.9 % (0.0-10.0); %Lymphocytes 14.8 % (21.0-51.0); %Monocytes 5.9 % (0.0-10.0); %Neutrophils 77.8 % (42.0-75.0); Hemoglobin 8.9 g/dL (12.0-16.0); Mean Corpuscular HGB CONC 32.3 g/dL (32.0-36.0); Mean Corpuscular Hemoglobin 27.9 pg (27.0-31.0); Mean Corpuscular Volume 86.3 fL (78.0-98.0); Mean Platelet Volume 8.8 fL (7.4-10.4); Platelet Count 225 thou/uL (130-400); RBC Distribution Width 13.4 % (11.5-14.5); White Blood Cell (WBC) Count 7.8 thou/uL (4.8-10.8)
--- NOTE | 2017-08-31 06:43 | HP ---
PRIMARY CARE PHYSICIAN: Dr. Jose Jasmine. CODE STATUS: FULL CODE TIME OF EVALUATION: 2300 hours. CHIEF COMPLAINT: Shortness of breath. HISTORY OF PRESENT ILLNESS: This is a 67-year-old female patient with past medical history of esopha geal and lung cancer, stage IV with immunotherapy, next dose due tomorrow, patient came to the hospit al after having severe shortness of breath, coughing up blood, and having difficulty breathing. Rivka ent was washing dishes when she had this episode, she was brought in via ambulance, found to be very hypertensive, she was stabilized in the ER, needing BiPAP initially, to be stepped down to nasa l cannula, at the time of my examination, the patient is comfortable, no clear triggers, no alleviati ng factors. REVIEW OF SYSTEMS: Constitutional: No fever, no chills, generalized weakness. Respiratory: The pa tient have cough, sputum production, shortness of breath. Cardiovascular: No chest pain, palpitatio n, shortness of breath. Gastrointestinal: No nausea. No vomiting, diarrhea, abdominal pain. Centr al Nervous System: No dizziness, headache, or feeling lightheaded. Genitourinary: No burning in ur ination. Extremities: No leg swelling. All other systems were reviewed and were negative except fo r the findings mentioned above. PAST MEDICAL HISTORY: COPD, stage IV lung cancer, multiple metastases. FAMILY HISTORY: No significant problems reported. PAST SURGICAL HISTORY: Right side lymph node removal. SOCIAL HISTORY: Everyday smoker, smoked for 30 years. ALLERGIES: MORPHINE and PENICILLIN. REPORTED MEDICATIONS: Hydrocodone, mirtazapine, albuterol, Anoro Ellipta, Atrovent, Xanax, Keytruda. PHYSICAL EXAMINATION: VITAL SIGNS: Heart rate 194 on presentation, blood pressure 160/130, respiratory rate 28. The vital signs improved after the respiratory distress was controlled. GENERAL APPEARANCE: Patient is alert, in mild distress, but improving after initial presentation. HEENT: Eye normal conjunctivae. Moist oral mucosa. Anicteric. NECK: No JVD. RESPIRATORY: Bilateral air entry. Scattered rales. No wheezing. Symmetric expansion. CARDIOVASCULAR: The patient was tachycardic. Normal rhythm. No murmur, no gallop. No edema. ABDOMEN: Soft. Normal bowel sounds. MUSCULOSKELETAL: Baseline range of motion and strength. No tenderness. SKIN: Warm and intact. No pallor, no rash, no redness. NEUROLOGIC: Baseline sensorium. No evidence of any new focal weakness. Baseline speech. Cranial n erves seem to be intact. PSYCHIATRIC: The patient is in a good mood. No anxiety. Oriented, optimal judgment. IMAGING: Chest CT was done, the patient had no evidence of pulmonary thromboembolism, right lower lo be lung cancer, extensive malignant metastatic mediastinal lymphadenopathy, centrilobular emphysema, significant airway narrowing of the right main stem bronchi due to extrinsic compression by sub carinal mediastinal lymphadenopathy, no major interval changes since 08/17/2017. LABORATORY DATA: Reviewed. White count 20, hemoglobin 12.2, MCV 87, platelet count 530,000. Coagul ation: PT 17.3, INR 1.4. D-dimer 0.6. PTT 37.3. Chemistry: Sodium 138, potassium 4.2, chloride 1 09, carbon dioxide 21, anion gap 12, BUN 10, creatinine 0.5. GFR greater than 90, glucose 102. Lact ic acid 0.6, calcium 9.1. ASSESSMENT AND PLAN: The patient will be placed in the IMCU for the following medical problems: 1. Acute hypoxic respiratory failure, likely secondary to underlying metastatic cancer, patient also reported that she has been having episodes of choking on food and medications, could be mild aspirat ion, this has improved. We will place the patient on nasal cannula, will monitor. 2. Leukocytosis, no source of infection has been identified, only secondary to infection, underlying infection, postobstructive pneumonia, but this is not seen on the CT. We will monitor the patient, we will start antibiotics if further concern for sepsis is seen. 3. Thrombocytosis, likely secondary to reactive to underlying process. Lactic acidosis initially 3. 4, came down to 0.7, likely secondary to hypoxia. 4. Hyperglycemia with blood sugar 235, this came down to 102, can be secondary to acute physical dis tress, has normalized now, we will monitor, we will treat accordingly. 5. Deep venous thrombosis prophylaxis. There was some report of patient having some blood in the co ugh, will not put patient on anticoagulation, but on SCDs for now. A CT angio was negative for pulmo nary embolism. 6. Stage IV lung cancer as reported on CT, is very advanced with obstruction of the airways. Patien t due for immunotherapy tomorrow. As noted, the patient cannot receive steroids due to immunotherapy .
[2017-08-31] MEDS ORDERED: Enoxaparin Sodium 40 MG/0.4 ML SYRINGE SC SCH (09:00)
--- NOTE | 2017-08-31 10:29 | PDOC.PN ---
- Subjective Encounter Start Date: 08/31/17 Encounter Start Time: 10:27 - Objective Resuscitation Status: Resuscitation Status FULL:Full Resuscitation MAR Reviewed: Yes Vital Signs & Weight: Vital Signs (12 hours) Temp Pulse Resp BP Pulse Ox 08/31/17 10:04 79 20 120/84 100 08/31/17 07:43 97.0 F L 69 16 104/65 100 08/31/17 06:41 91 18 100 08/31/17 04:08 96.9 F L 76 12 117/61 100 08/31/17 02:52 71 14 100 08/31/17 02:00 96.9 F L 76 12 98 08/31/17 01:10 98.0 F 78 16 110/65 97 I&O: 08/30/17 08/31/17 09/01/17 06:59 06:59 06:59 Intake Total 35 Output Total 750 Balance -715 Result Diagrams: 08/31/17 02:34 08/31/17 02:36 Phys Exam - Physical Examination MODEST RESPIRATORY DISTRESS COARSE BREATH SOUNDS THROUGOUT. Cardiovascular: RRR, no significant murmur, no rub Gastrointestinal: soft, non-tender Musculoskeletal: no edema Psychiatric: normal affect, A&O x 3 Dx/Plan (1) Acute respiratory failure Code(s): J96.00 - ACUTE RESPIRATORY FAILURE, UNSP W HYPOXIA OR HYPERCAPNIA Status: Acute Plan: SECONDARY TO LUNG CA AND BRONCHIAL COMPRESSION. (2) Bronchial compression Code(s): J98.09 - OTHER DISEASES OF BRONCHUS, NOT ELSEWHERE CLASSIFIED Status : Acute Plan: COMPRESSION OF BILATERAL MAINSTEM BRONCHI SECONDARY TO ADVANCING TUMOR. SHE HAS BEEN ON KEYTRUDA BUT DOES NOT GENERALLY WANT TRADITIONAL CHEMO OR XRT. STEROIDS CONTRAINDICATED WITH KEYTRUDA. DISCUSSED WITH PULM. LIMITED OPTIONS. STENTS NOT A GOOD OPTION. KEYTRUDA MAY MAKE IT WORSE BEFORE BETTER. XRT MAY MAKE IT WORSE BEFORE BETTER. NO REAL CAPACITY TO GET WORSE. ONCOLOGY TO SEE. MAY NEED RAD ONC TO ASSESS. (3) Lung cancer Code(s): C34.90 - MALIGNANT NEOPLASM OF UNSP PART OF UNSP BRONCHUS OR LUNG Status: Acute Plan: ON KEYTRUDA. SUPPOSED TO GET THIRD DOSE TODAY. ON HOLD. (4) Dysphagia Code(s): R13.10 - DYSPHAGIA, UNSPECIFIED Status: Acute Plan: ESOPHAGEAL CONSTRICTION FOR THE LUNG TUMOR. PUREED DIET. (5) Hemoptysis Code(s): R04.2 - HEMOPTYSIS Status: Acute - Plan * ABOVE.
[2017-08-31] MEDS: Lorazepam 2 MG/ML VIAL SLOW IVP PRN ×3 (10:38→21:13)
[2017-08-31] MEDS ORDERED: Lorazepam 2 MG/ML VIAL SLOW IVP SCH (18:15)
--- NOTE | 2017-08-31 19:27 | CON ---
DATE OF CONSULTATION: 08/31/2017 REASON FOR CONSULTATION: Lung cancer. HISTORY OF PRESENT ILLNESS: Ms. Baumann is a 67-year-old female who has stage IV adenocar cinoma of the right lower lobe. She has mediastinal lymphadenopathy and mass at the EG junction. Ryann rizvi saw Dr. Gaston in June and was offered chemotherapy with immunotherapy. She refused chemotherap y, but did receive her first dose of Keytruda on 07/19/2017. She has received a total of 2 doses and is due for today. She has had progressive dysphagia with increasing shortness of breath. She was h ospitalized here 2 weeks ago for these symptoms. She had a CT of the neck which showed the right low er lobe mass peritracheal lymphadenopathy and the mass at the EG junction. A barium swallow showed a circumferential narrowing, but no obstruction. She actually felt better over the last week and yest quinn did some cooking and swept her floor, became acutely short breath. 911 was called and she pres ented to the emergency room for evaluation. She was initially placed on BiPAP and placed in the IMU, but has been removed on BiPAP and is tolerating O2. PAST MEDICAL HISTORY: 1. Stage IV adenocarcinoma of the lung. 2. Chronic tobacco use. 3. Emphysema. PAST SURGICAL HISTORY: Neck biopsy. ALLERGIES: PENICILLIN and CODEINE. HOME MEDICATIONS: 1. Anoro Ellipta inhaler. 2. Megace daily. 3. [place] 10/325 p.r.n. 4. Tramadol p.r.n. 5. Ventolin p.r.n. FAMILY HISTORY: Brother had lung cancer. SOCIAL HISTORY: , lives alone. Current every day smoker with a 30-pack history. No alcohol or illicit drug use. REVIEW OF SYSTEMS: Positive for dyspnea and dysphagia. Otherwise, negative. PHYSICAL EXAMINATION: VITAL SIGNS: Temperature is 99.3, pulse is 90, respiratory rate 14, BP is 114/72, she is 100% on 2 l iters nasal cannula. GENERAL: This is a chronically ill-appearing female in no acute distress. HEENT: Normocephalic, atraumatic. Pupils equal and reactive to light. NECK: Supple. CARDIOVASCULAR: Regular rate and rhythm. LUNGS: Diminished with expiratory wheezing. ABDOMEN: Soft, nontender, bowel sounds are positive. EXTREMITIES: No clubbing, cyanosis or edema. SKIN: No rash. HEMATOLOGIC: No petechia or purpura. NEUROLOGIC: Nonfocal. PSYCHIATRIC: The patient is alert and oriented and appropriate. PERTINENT LABORATORY DATA AND IMAGING DATA: Current WBCs are 7.8, hemoglobin 8.9, hematocrit 27.7, p latelet count is 225, 78% neutrophils, 15% lymphocytes. PT 17.3, INR is 1.4, PTT is 37.3. Sodium is 138, potassium 4.2, chloride 109, CO2 is 21, BUN is 10, creatinine 0.56, lactic acid is 0.6, calcium 8.1, bilirubin is 0.3, AST is 26, ALT is 18, alkaline phosphatase is 128. BNP is 78, serum total pr otein is 7.6, albumin 3.7, globulin 3.9. Chest x-ray showed right lower lobe lung cancer and COPD, n o acute findings. CT angio showed no embolism. It did again demonstrate extensive malignant metasta tic mediastinal lymphadenopathy with airway narrowing of the left and right mainstem bronchi due to e xtrinsic tumor. There were no major interval changes since 08/17/2017. ASSESSMENT: 1. Stage IV adenocarcinoma of the lung. 2. Acute on chronic respiratory failure. 3. Chronic obstructive pulmonary disease. 4. Extrinsic compression of tumor on the bronchus. DISCUSSION: The patient has been removed from BiPAP and is tolerating O2. Dr. Suh has seen the pa irmant and feels a dose of IV steroids would be beneficial to the patient. The patient understands th at a short course of steroids will prevent administration of Keytruda tomorrow; however, given the ve ry difficult situation that we are in, it is appropriate to provide some possible relief from her dys phagia. I did discuss with patient and her 3 daughters at bedside, code status. The patient was a D NR on previous admission and would like to be a DNR on this admission. Palliative care team will see the patient to discuss possible hospice. Patient again declined chemotherapy at this time. I think she is hospice appropriate, although if she improves over the next week or so and wants to resume Ke ytruda, it is certainly a possibility she needs. She has had 2 doses of Keytruda and would need at l east 2 more to see if we have any improvement. I am not sure that she is going to be able to make it another 6 weeks with immunotherapy alone. All of this was discussed in detail with the family and w tyler Suh. Thank you for the consult.
[2017-08-31] MEDS ORDERED: Ondansetron ODT 4 MG TAB SL PRN (19:58)
[2017-08-31] MEDS ORDERED: Hyoscyamine Sulfate SL 0.125 mg Tablet SL PRN (19:59)
--- NOTE | 2017-08-31 20:29 | CON ---
DATE OF CONSULTATION: 08/31/2017 HISTORY OF PRESENT ILLNESS: Ms. Baumann is an unfortunate 67-year-old female with nonsmall cell lung cancer. Apparently, she had declined conventional chemotherapy and radiotherapy. She was diagnosed a couple months ago with nonsmall cell lung cancer via lymph node biopsy in her neck performed by Dr. Hebert. This was adenocarcinoma that was TTF-1 negative, PDL 160%. She had no EGFR mutation and tumor was negative for ALK rearrangement and ROS1 rearrangement. She recently started on Keytruda. She has been doing poorly with complaints of ongoing shortness of breath that comes and goes. She had a CT of her chest done 08/17/[address] done 08/30/2017. They both show extensive mediastinal lymphadenopathy with bilateral main stem bronchus compression. She was admitted to the hospital. I was consulted to assist in her management. PAST MEDICAL HISTORY: Remarkable for chronic obstructive pulmonary disease. SOCIAL HISTORY: Smoker, not a daily drinker, does not use drugs. ALLERGIES: She reports allergies to MORPHINE and PENICILLIN. MEDICATIONS PRIOR TO ADMISSION: She is on Anoro, Keytruda, Xanax, Atrovent, albuterol, mirtazapine, as well as p.r.n. hydrocodone. FAMILY HISTORY: Negative for lung disease in early age. REVIEW OF SYSTEMS: 10 point system reviewed otherwise neg., only remarkable for intermittent dyspnea. PHYSICAL EXAMINATION: VITAL SIGNS: She is afebrile, heart rate is 85, respiratory rate is 20, oximetry is 100% on 2 liters, blood pressure 114/72. GENERAL: She is not hoarse, thought initially she may have had a little inspiratory noise, but she does not consistently. LUNGS: Remarkable for bilateral wheezes both inspiratory and expiratory. HEART: Regular rhythm. ABDOMEN: Soft and nontender. EXTREMITIES: No clubbing, cyanosis, or edema. NEUROLOGIC: Grossly nonfocal. LABORATORY AND X-RAY FINDINGS: CT and chest x-ray have been reviewed by me. White count 7.8, hemoglobin 8.9, platelets 225,000. Sodium 138, potassium 4.2, chloride 109, bicarbonate 21, BUN 10, creatinine 0.56. IMPRESSION: Respiratory distress secondary to retained secretions with extrinsic compression of both main stem bronchi. Unfortunately with Keytruda, she will not have an immediate response to therapy and may very well get worse before she gets better. I think mucolytics humidified oxygen and frequent nebulizer treatments are really all we have to offer at this point in time. She apparently has a clinically aggressive tumor. Hopefully, she will eventually respond to therapy. I will be happy to follow with the physicians caring for her. This is a 50 minute consult, greater than 50% of the time was spent on unit coordinating care. MINDY
[2017-08-31] MEDS ORDERED: guaiFENesin ER 600 MG TAB PO SCH (21:00)
[2017-08-31] MEDS ORDERED: Mirtazapine 15 MG TAB PO SCH (21:00)
[2017-09-01 07:28] VITALS: BP 92/54; TEMP 98
[2017-09-01] MEDS: Lorazepam 2 MG/ML VIAL SLOW IVP PRN (08:34)
--- NOTE | 2017-09-01 12:33 | PRG ---
DATE OF SERVICE: 09/01/2017 SERVICE: Pulmonary Medicine. INTERVAL HISTORY: The patient did poorly overnight. She went into tachyarrhythmia. She was given m edication for rate control. This was associated with exertion, but whenever she got back to bed and caught her breath, she was doing fine. We discussed options today. She previously indicated that rupesh rizvi wanted to go home on hospice. That being said, a true discussion about whether or not a stent was viable option was never approached. I told the patient today that I am not certain that a stent woul d be an option for her. That being said, I offered to send her to [place] to discuss this with an in terventional supervisor seaming. She is going to decide whether or not this is something she wants to pur zeb. PHYSICAL EXAMINATION: VITAL SIGNS: Afebrile, pulse 97, blood pressure 92/54, respirations 20, saturation 97% on room air. HEENT: Normocephalic, atraumatic. Sclerae are white, conjunctivae pink. Oral mucosa is moist witho ut lesions. LUNGS: Prolonged inspiratory phase. There is decent air entry. She does not have any difficulty wi th speaking. There is no wheezing or rhonchi present. HEART: Normal rate and regular. ABDOMEN: Soft, nontender and nondistended. Bowel sounds are positive. MUSCULOSKELETAL: No cyanosis or clubbing. There is no pitting in the bilateral lower extremities. NEUROLOGIC: Grossly nonfocal. LABORATORY DATA: WBC 7.8, hemoglobin 8.9, and platelets 225,000. Basic metabolic profile is otherwi se unremarkable. Lactate 0.6. Blood cultures x2 are unremarkable. ASSESSMENT: 1. Stridor secondary to endobronchial mass. 2. Adenocarcinoma of the lung, stage 4, status post 2 rounds of Keytruda. DISCUSSION AND PLAN: My suspicion is that we are dealing with pseudo-progression of her underlying l shreya process. We discussed going home with hospice versus discussing her options moving forward with an interventional supervisor seaming. At this point, she is going to decide which route she would like to go, and move in that direction. We will facilitate whichever thing she chooses.
--- NOTE | 2017-09-02 10:44 | DIS ---
DATE OF ADMISSION: 08/30/2017 DATE OF DISCHARGE: 09/01/2017 DISCHARGE DIAGNOSES: 1. Metastatic lung cancer. 2. Bronchial compression. 3. Acute respiratory distress with respiratory failure. 4. History of tobacco abuse. BRIEF HISTORY: This patient is a 67-year-old female who has only been discharged a short time before this admission. She has a history of significant lung cancer which is metastatic to multiple carinal nodes. The patient had previously been admitted with some respiratory compromise. She had ultimately decided after initial diagnosis not to undergo traditional chemotherapy, but to use immunotherapy to treat it. The patient had not had an adequate time to fully respond and decided not to attempt steroids, as they might have been contraindicated with immunotherapy. She also did not want to pursue chemotherapy, even though she was having respiratory compromise, nor did she want to consider radiation therapy at that time. The hope was that she would get past the initial worsening of the pseudoprogression related to Keytruda and start to see improvement and her respirations would improve. However, the patient returned to the hospital with another episode of fairly severe respiratory distress and respiratory failure. A repeat CT scan of her chest at this time revealed that there was compromise of both main stem bronchi as a result of encroaching tumor. The patient was admitted to the Intermediate Care Unit. Oncology was consulted as well as Pulmonology. Ultimately, her treatment options were basically the same. Discussed with Pulmonology possibility of some type of stenting; however, they initially did not feel like this was going to be a reasonable option in this case. Palliative care team was asked to see the patient and ultimately the patient decided to be a DNR. She was evaluated by hospice and ultimately made the determination to go the route of hospice care. PHYSICAL EXAMINATION: VITAL SIGNS: On the day of discharge temperature is 98.0, pulse initially was 84, but got up into the 170s with respirations in the 20s. She was somewhat distressed and had very harsh upper airway noise and she was satting 100% on 15 liters Venturi mask. DISPOSITION: The patient will be discharged to the care of inpatient hospice. Further medications and follow up will be per their recommendations. [facility]
== END 2017-09-01 09:00 | disposition hospice, home (50) | DRG 180 ==
LOC: ERS 19:42 → IMCU/EMU 22:19
PROVIDERS: ADMIT Hospitalist; ATTEND Hospitalist
DX: C34.90 Malignant neoplasm of unspecified part of unspecified bronchus or lung (principal); J96.21 Acute and chronic respiratory failure with hypoxia; C15.9 Malignant neoplasm of esophagus, unspecified; E87.2 Acidosis; R04.2 Hemoptysis; C77.9 Secondary and unspecified malignant neoplasm of lymph node, unspecified; Z88.0 Allergy status to penicillin; D72.829 Elevated white blood cell count, unspecified; D47.3 Essential (hemorrhagic) thrombocythemia; R73.9 Hyperglycemia, unspecified; R00.0 Tachycardia, unspecified; R13.10 Dysphagia, unspecified; F17.210 Nicotine dependence, cigarettes, uncomplicated; J43.9 Emphysema, unspecified; Z66 Do not resuscitate; J98.09 Other diseases of bronchus, not elsewhere classified; I48.91 Unspecified atrial fibrillation
CPT/HCPCS: 36415; 71045; 71275; 80048; 80053; 82553; 83605; 83880; 84484; 85025; 85379; 85610; 85730; 87040; 93005; 94640; 94660; 94760; 96361; 96365; 96366; 96375; J1956; J2060; J2270; J2920; J2930; J3010; J3370; J7611; J7620

== ENCOUNTER 2017-09-01 09:01 | Inpatient (IN) | payer OTHER ==
[2017-09-01 10:23] VITALS: BMI 15.9
[2017-09-01] MEDS ORDERED: Acetaminophen 325 MG TAB PO PRN (10:40)
[2017-09-01] MEDS ORDERED: Ondansetron ODT 4 MG TAB SL PRN (10:45)
[2017-09-01] MEDS ORDERED: Hyoscyamine Sulfate SL 0.125 mg Tablet SL PRN (10:45)
[2017-09-01] MEDS: Lorazepam 2 MG/ML VIAL SLOW IVP PRN ×2 (11:36→15:06)
[2017-09-01 12:15] VITALS: TEMP 97
--- NOTE | 2017-09-06 18:39 | DIS ---
HOSPITAL COURSE: This is a 67-year-old female admitted to hospice for metastatic lung cancer. The patient was deemed stable for transport and was discharged on 09/01/2017. The family was aware of the patient's situation. She was not amenable to medical therapy and was started on hospice. Disposition Home with hospice. Meds None except Prn medication for pain control. [facility]
== END 2017-09-01 15:19 | disposition hospice, home (50) | DRG 189 ==
LOC: IMCU/EMU 09:01
PROVIDERS: ADMIT Internal Medicine Nephrology; ATTEND Internal Medicine Nephrology
DX: J96.00 Acute respiratory failure, unspecified whether with hypoxia or hypercapnia (principal); C34.90 Malignant neoplasm of unspecified part of unspecified bronchus or lung; C15.9 Malignant neoplasm of esophagus, unspecified; R04.2 Hemoptysis; C79.9 Secondary malignant neoplasm of unspecified site; E87.2 Acidosis; R13.10 Dysphagia, unspecified; Z51.5 Encounter for palliative care; Z66 Do not resuscitate; I10 Essential (primary) hypertension; J44.9 Chronic obstructive pulmonary disease, unspecified; D47.3 Essential (hemorrhagic) thrombocythemia; R73.9 Hyperglycemia, unspecified; Z87.891 Personal history of nicotine dependence; Z79.899 Other long term (current) drug therapy
CPT/HCPCS: J2060; J2920